=== PATIENT | female | born 1960 | race Caucasian/White ===

== ENCOUNTER → 2024-10-19 | Outpatient (CLI) | payer MEDICAID, SELFPAY ==
--- NOTE | 2024-10-19 09:07 | NEURO ---
NCS and/or EMG Patient Report Ordering Doctor: Matt Givens DATE OF SERVICE: 10/19/24 Clinical Summary: 63 year old female patient with symptoms of numbness/tingling that radiates down laterally in both legs to the feet. Symptoms are much more pronounced in the left lower extremity. She denies having any back pain. Nerve Conduction Studies Summary: Nerve conduction studies performed in the bilateral lower extremities, including the left femoral cutaneous and bilateral medial planter responses, were normal. Needle Examination Summary: Needle examination of select muscles of the bilateral lower extremities was normal. Impression: This is a normal study. There is no electrodiagnostic evidence either of a left/right lumbosacral radiculopathy, left lateral femoral cutaneous mononeuropathy (left meralgia paresthetica), or left/right distal tibial mononeuropathy (tarsal tunnel syndrome). Multi Select Codes Neurology Neurology Interp Codes: 29326-19 Musc test done w/n test comp (interp) (2) and 71584-19 Nrv cndj test 11-12 studies (interp)
== END | disposition home or self-care (01) ==
LOC: PSN 06:59
PROVIDERS: PCP Nurse Practitioner Adult Health; Referring Provider Orthopaedic Surgery Sports Medicine; Visit Provider Orthopaedic Surgery Sports Medicine
DX: M54.16 Radiculopathy, lumbar region (principal)
CPT/HCPCS: 95886; 95913